=== PATIENT | female | born 1960 | race Caucasian/White ===

== ENCOUNTER 2025-03-03 06:41 | Emergency (ER) | payer MEDICARE, MEDICAID ==
[~2025-03-03] VITALS: Ht 165.1 cm; Wt 55.0 kg
[~2025-03-03 06:41] MED LIST: OMEP20TA44 OR
--- NOTE | 2025-03-03 08:01 | ED.PDOC ---
General HPI Comments 64 y/o F, with PMHx of cervical cancer presents to the ED for CC of urinary symptoms. Patient states, she has been experiencing frequent urination with associated burning upon urination x1day. Patient reports, new onset symptoms of hematuria as of today (03/03/25). Patient denies fever, chills, or flank pain. No other symptoms or modifying factors present at this time. Chief Complaint: Urinary Time Seen by MD: 07:50 Primary Care Provider: Miguel FERRARO Reviewed notes: Nurses Notes, Medications, Allergies Allergies: Coded Allergies: Alcohol (Verified Allergy, 05/14/11) Iodine (Verified Allergy, SEAFOOD, 05/14/11) Penicillins (Verified Allergy, 05/14/11) Uncoded Allergies: SEA FOOD (Allergy, Intermediate, 05/14/11) Home Meds Reported Medications Omeprazole ([facility] Omeprazole) 20 Mg Tab, 20 MG OR DAILY 05/09/11 Information Source: Patient Mode of Arrival: Ambulatory Severity: Moderate Inability to void: None Timing: Hours Duration: Since onset Prehospital treatment: None Onset: Spontaneous Symptoms: Dysuria, Frequency History of: None associated signs and symptoms: Dysuria, Frequency Past Medical History PAST MEDICAL HISTORY: Cancer Surgical History: Hysterectomy, Denies all surgeries TAX ACCOUNTANT History: Denies all TAX ACCOUNTANT Hx Family History Family History: No family hx of DM, No family hx of Heart danial, No family hx of HTN, No family hx of Stroke Social History Smoker: Non-Smoker Alcohol: Denies ETOH Use Drugs: Denies Drug Use Lives In: Home Constitutional: denies: chills, diaphoresis, fatigue, fever, malaise, sweats, weakness, others EENTM: denies: blurred vision, double vision, ear bleeding, ear discharge, ear drainage, ear pain, ear ringing, eye pain, eye redness, hearing loss, mouth pain, mouth swelling, nasal discharge, nose bleeding, nose congestion, nose pain, photophobia, tearing, throat pain, throat swelling, voice changes, others Respiratory: denies: cough, hemoptysis, orthopnea, SOB at rest, shortness of breath, SOB with excertion, stridor, wheezing, others Cardiovascular: denies: chest pain, dizzy spells, diaphoresis, Dyspnea on exertion, edema, irregular heart beat, left arm pain, lightheadedness, palpitations, PND, syncope, others Gastrointestinal: denies: abdomen distended, abdominal pain, blood streaked bowels, constipated, diarrhea, dysphagia, difficulty swallowing, hematemesis, melena, nausea, poor appetite, poor fluid intake, rectal bleeding, rectal pain, vomiting, others Genitourinary: reports: frequency, hematuria; denies: abnormal vagina bleeding, burning, dyspareunia, dysuria, flank pain, incontinence, pain, , vagina discharge, urgency, others Neurological: denies: dizziness, fainting, headache, left sided numbness, left sided weakness, numbness, paresthesia, pre-existing deficit, right sided numbness, right sided weakness, seizure, speech problems, tingling, tremors, weakness, others Musculoskeletal: denies: back pain, gout, joint pain, joint swelling, muscle pain, muscle stiffness, neck pain, others Integumetry: denies: bruises, change in color, change in hair/nails, dryness, laceration, lesions, lumps, rash, wounds, others Allergic/Immunocompromised: denies: Difficulty Healing, Frequent Infections, Hives, Itching, others Hematologic/Lymphatic: denies: anemia, blood clots, easy bleeding, easy bruising, swollen glands, others Endocrine: denies: excessive hunger, excessive sweating, excessive thirst, excessive urination, flushing, intolerance to cold, intolerance to heat, unexplained weight gain, unexplained weight loss, others Psychiatric: denies: anxiety, bipolar disorder, depression, hopeless, panic disorder, schizophrenia, sleepless, suicidal, others All Other Systems: Reviewed and Negative Physical Exam General Appearance: No Apparent Distress, Normal HEENT: Normal ENT Inspection, Pharynx Normal Neck: Full Range of Motion, Non-Tender, Normal, Normal Inspection Respiratory: Chest Non-Tender, Lungs Clear, No Accessory Muscle Use, No Respiratory Distress, Normal Breath Sounds Cardiovascular: No Edema, No Murmur, No Gallop, Normal Peripheral Pulses, Regular Rate/Rhythm Breast Exam: Deferred Gastrointestinal: No Organomegaly, Non Tender, No Pulsatile Mass, Normal Bowel Sounds, Soft Genitalia: Deferred Pelvic: Deferred Rectal: Deferred Extremities: No calf tenderness, Normal capillary refill, Normal inspection, Normal range of motion, Non-tender, No pedal edema Musculoskeletal : Apperance: Normal Neurologic: Alert, construction project administrator II-XII nml as Tested, No Motor Deficits, Normal Affect, Normal Mood, No Sensory Deficits Cerebellar Function: Normal Reflexes: Normal Skin: Dry, Normal Color, Warm Lymphatic: No Adenopathy Was a procedure done? Was a procedure done?: No Differential Diagnosis Kidney stone (Female): Pyelonephritis, Urinary obstruction, Urolithiasis Kidney stone (Male): N/A Penile/Scrotal: N/A Urinary Problem (Male): N/A Urinary Problem (Female): UTI, Vaginitis X-Ray, Labs, Meds, VS Vital Signs Date Time Temp Pulse Resp B/P (MAP) Pulse Ox O2 Delivery O2 Flow Rate FiO2 03/03/25 09:46 97.9 97 18 135/90 (105) 99 97.9 03/03/25 06:56 99.1 85 16 136/84 (101) 99 99.1 Lab Test 03/03/25 08:10 03/03/25 06:51 Range/Units White Blood Count 8.9 4.4-10.8 10^3/uL Red Blood Count 5.22 H 4.0-5.20 10^6/uL Hemoglobin 11.9 L 12.2-16.2 g/dL Hematocrit 36.9 36.0-46.0 % Mean Corpuscular Volume 70.6 L 80.0-100.0 fL Mean Corpuscular Hemoglobin 22.7 L 28.0-32.0 pg Mean Corpuscular Hemoglobin Concent 32.1 32.0-36.0 g/dL Red Cell Distribution Width 15.5 H 11.8-14.3 % Platelet Count 294 140-450 10^3/uL Mean Platelet Volume 8.4 6.9-10.8 fL Neutrophils (%) (Auto) 80.9 H 37.0-80.0 % Lymphocytes (%) (Auto) 9.8 L 10.0-50.0 % Monocytes (%) (Auto) 8.9 0.0-12.0 % Eosinophils (%) (Auto) 0.2 0.0-7.0 % Basophils (%) (Auto) 0.2 0.0-2.0 % Neutrophils # (Auto) 7.2 1.6-8.6 10 ^3/uL Lymphocytes # (Auto) 0.9 0.4-5.4 10 ^3/uL Monocytes # (Auto) 0.8 0-1.3 10 ^3/uL Eosinophils # (Auto) 0 0-0.8 10 ^3/uL Basophils # (Auto) 0 0-0.2 10 ^3/uL Nucleated Red Blood Cells 0.1 % Sodium Level 140 136-145 mmol/L Potassium Level 3.8 3.5-5.1 mmol/L Chloride Level 105 98-107 mmol/L Carbon Dioxide Level 28 20-31 mmol/L Anion Gap 7 5-15 Blood Urea Nitrogen 13 9-23 mg/dL Creatinine 0.89 0.550-1.02 mg/dL Glomerular Filtration Rate Calc 72 >90 mL/min BUN/Creatinine Ratio 14.6 10.0-20.0 Serum Glucose 116 H 74-106 mg/dL Calcium Level 10.2 8.7-10.4 mg/dL Urine Color Brown H Yellow Urine Clarity Turbid H Clear Urine pH 7.5 5.0-9.0 Urine Specific [place] 1.011 1.001-1.035 Urine Protein 1+ H Negative Urine Ketones Negative Negative Urine Blood 3+ H Negative /uL Urine Nitrite Negative Negative Urine Bilirubin Negative Negative Urine Urobilinogen Normal Negative mg/dL Urine Leukocyte Esterase 3+ Negative /uL Urine RBC 2884 0 - 4 /hpf Urine WBC Clumps Present None Seen /hpf Urine Microscopic WBC 305 H 0-5 /HPF Urine Squamous Epithelial Cells None seen <5 /hpf Urine Bacteria None seen None Seen /hpf Urine Glucose Normal Normal mg/dL Time of 1ST Reevaluation: 08:20 Reevaluation 1ST: Unchanged Patient Education/Counseling: Diagnosis, Treatment Family Education/Counseling: No Family Present SEPSIS Sepsis Screen Date sepsis recognized/suspect: Mar 03, 2025 Time Sepsis recognized/suspect: 06 Recent Procedure: No On Antibiotic Therapy: No Respiratory Rate >20: No Heart Rate >90: No Temp<36 C (96.8 F) or >38.3 C: No SBP <90 or MAP <65 mmHG: No New Acute Mental Status Change: No Is the patient on CPAP, BIPAP,: No Physician Orders Ct Ab Pel Wo Con-No Oral Or Iv (03/03/25 11:38) Vital Signs Date Time Temp Pulse Resp B/P (MAP) Pulse Ox O2 Delivery O2 Flow Rate FiO2 03/03/25 09:46 97.9 97 18 135/90 (105) 99 97.9 7/8/25 06:56 99.1 85 16 136/84 (101) 99 99.1 Laboratory Tests Test 03/03/25 08:10 White Blood Count 8.9 10^3/uL (4.4-10.8) Departure 1 Departure Time of Disposition: 13:08 (Patient likely with complicated UTI with hematuria. We will we will empirically cover patient with antibiotics and admit patient for further workup. Patient is not septic.) Impression: Primary Impression: Complicated UTI (urinary tract infection) Additional Impression: Hematuria Qualified Codes: R31.0 - Gross hematuria Disposition: ADMITTED INPATIENT Admit to: Med Surg Condition: Serious Critical Care Note Critical Care Time?: No Stability Stability form required: No Heart Score Heart Score: Heart Score Response (Comments) Value History N/A 0 EKG N/A 0 Age N/A 0 Risk Factors N/A 0 Troponin N/A 0 Total 0 I personally scribed for GLADIS IRWIN MD ([email or web address]) on 03/03/25 at 08:01. Electronically submitted by Roxana Goldman ([email or web address]). I personally scribed for GLADIS IRWIN MD ([email or web address]) on 03/03/25 at 11:44. Electronically submitted by Roxana Goldman ([email or web address]). GLADIS IRWIN MD Mar 03, 2025 08:01
[2025-03-03 08:25] LABS: Mean Corpuscular Volume 70.6 fL (80.0-100.0); Nucleated Red Blood Cells % 0.1 %
[2025-03-03 08:27] LABS: Hematocrit 36.9 % (36.0-46.0); Hemoglobin 11.9 g/dL (12.2-16.2); Mean Corpuscular Hemoglobin 22.7 pg (28.0-32.0)
[2025-03-03 08:32] LABS: Chloride 105 mmol/L (98-107); Potassium 3.8 mmol/L (3.5-5.1); Sodium 140 mmol/L (136-145)
[2025-03-03 08:33] LABS: Anion Gap 7 (5-15); Carbon Dioxide 28 mmol/L (20-31)
[2025-03-03 08:34] LABS: Calcium 10.2 mg/dL (8.7-10.4)
[2025-03-03 08:38] LABS: BUN/Creatinine Ratio 14.6 (10.0-20.0); Blood Urea Nitrogen 13 mg/dL (9-23)
[2025-03-03 08:39] LABS: Glucose 116 mg/dL (74-106)
[2025-03-03 10:50] LABS: Urine Protein, UAD 1+ (Negative); Urine WBC Clumps PRESENT /hpf (None Seen)
--- NOTE | 2025-03-03 12:18 | DVH ---
Exam: CT CT AB PEL WO CON-NO ORAL OR IV History: hematuria Comparison Study: None Technique: Multidetector spiral CT of the abdomen was performed from lung bases to pubic symphysis. I maging was performed without IV contrast. Axial, coronal and sagittal multiplanar reformats were obta ined from the axial data set by the technologist. Radiation Dose : 1. Abdomen/Pelvis: CTDIvol 5.5 mGy, DLP 261 mGy*cm. Findings: Evaluation of solid organs is limited due to lack of intravenous contrast use. Lung Bases: No acute or significant lung base finding. Normal heart size. No pleural or pericardial effusion. Liver: The liver is normal in size. No focal lesions. Gallbladder and Biliary Tree: Unremarkable Spleen: Unremarkable Pancreas: The pancreas is grossly normal in appearance. Adrenal Glands: Unremarkable Kidneys: Kidneys are grossly normal without calculi or hydronephrosis. Bladder: Grossly unremarkable for degree of distention. Bowel: Distended stomach. Moderate colonic stool. Mild colonic bowel wall thickening. The appendix is not visualized; however, no secondary findings of acute appendicitis identified. Ascites: Absent Lymphadenopathy: No mesenteric, retroperitoneal or periportal lymphadenopathy. Abdominal Wall and Mesentery: Unremarkable. Vasculature: The visualized abdominal aorta is normal in size and caliber. Evaluation of abdominal a nd pelvic vessels is limited due to lack of intravenous contrast. Pelvic Organs: Unremarkable Musculoskeletal: No aggressive focal bony lesions, acute fractures or dislocation. Degenerative disc space narrowing at L4-L5 and L5-S1. IMPRESSION: Possible mild colitis. Moderate colonic stool. Otherwise, no acute findings.
[2025-03-03] MEDS: cefTRIAXone 1GM/50ML D5W 50 ML IV ONE (13:15)
[2025-03-03 14:38] VITALS: BP 145/100; PULSE 94; RESP 20; TEMP 98; O2SAT 98
[2025-03-03] MEDS ORDERED: CEFD300C2 PO (15:38)
[2025-03-03] MEDS ORDERED: VANC125PO PO (15:38)
--- NOTE | 2025-03-03 15:38 | ED.PDOC ---
Departure 1 Departure Time of Disposition: 15:35 (After discussion with the patient patient does not want to be admitted. We will try patient on outpatient antibiotics and discharge patient with outpatient follow up) Impression: Primary Impression: Complicated UTI (urinary tract infection) Additional Impression: Hematuria Qualified Codes: R31.0 - Gross hematuria Disposition: HOME / SELF CARE / HOMELESS Condition: Stable Referrals: LAZ VEGAS MD Additional Instructions: You have a urinary tract infection. You were prescribed antibiotics. Please take as directed. You can take Tylenol Motrin as needed for pain. It is important that he follow up with the regular doctor within 1 week to ensure you are doing better. If your symptoms worsen or you have any other concerns then please return to the emergency room. e-Prescriptions Cefdinir (Cefdinir) 300 Mg Cap 1 CAP PO BID for 7 Days, #14 CAP Prov: GLADIS IRWIN MD 03/03/25 Vancomycin Hcl (Vancomycin Po) 125 Mg So 125 MG PO QID PRN for 10 Days, #5000 MG Prov: GLADIS IRWIN MD 03/03/25 GLADIS IRWIN MD Mar 03, 2025 15:38
[2025-03-03] MEDS ORDERED: VANC1SUS PO (16:19)
== END 2025-03-03 16:27 | disposition home or self-care (01) ==
LOC: ER 06:41
DX: N39.0 Urinary tract infection, site not specified (principal); R31.9 Hematuria, unspecified; Z79.899 Other long term (current) drug therapy; Z90.710 Acquired absence of both cervix and uterus; Z88.0 Allergy status to penicillin
CPT/HCPCS: 36415; 74176; 80048; 81001; 85025